=== PATIENT | male | born 1950 | race Hispanic/Latino ===

== ENCOUNTER 2017-04-14 08:53 | Outpatient (CLI) | payer OTHER, MEDICARE, BC ==
--- NOTE | 2017-04-14 12:53 | XRay Report ---
ROUTINE CHEST, TWO VIEWS: HISTORY: Cough. The trachea, heart, mediastinal contour, lung tony and bony thorax are unremarkable. IMPRESSION: Unremarkable chest x-ray.
== END 2017-04-14 08:54 | disposition home or self-care (01) ==
LOC: XRAY 08:53
PROVIDERS: ATTEND Family Medicine
DX: R05 Cough (principal)
CPT/HCPCS: 71020